=== PATIENT | female | born 1995 | race African-American/Black ===

== ENCOUNTER 2020-12-06 20:56 | Emergency (ER) | payer BC, MEDICAID, SELFPAY ==
[2020-12-06 21:05] VITALS: BP 147/96; PULSE 98; RESP 18; TEMP 36.7; O2SAT 97; BMI 39.6
--- NOTE | 2020-12-06 22:22 | W.ED.NAVMDI ---
HPI - Nausea/Vomiting/Diarrhea General: Chief complaint: Nausea/Vomiting/Diarrhea Stated complaint: 18 Weeks Preg\Vomiting Time Seen by Provider: 12/06/20 22:22 History of Present Illness: HPI Narrative: 25-year-old female comes in today with complaints of abdominal cramping along with nausea and vomiting. Patient is 18 weeks and has had persistent nausea and vomiting over the last 8 weeks. Patient reports some weight loss. Patient appears well. Patient appears no acute distress at this time. Respirations are even. Patient denies any vaginal discharge or bleeding. MD elicited complaint: nausea and vomiting Associated nausea: Yes Associated symtoms: Reports nausea Review of Systems General: Reports: 10 or more systems reviewed and unremarkable except in HPI and below GI: Reports: nausea and vomiting Physical Exam Const: COMMON NORMALS: no acute distress and patient oriented x3 GENERAL APPEARANCE: cooperative HENMT: COMMON NORMALS: normocephalic, TM's normal bilaterally and Normal external nose present HEAD & SCALP: normal to inspection and normocephalic NOSE: Normal external nose present TYMPANIC MEMBRANE: TM's normal bilaterally MOUTH: Normal oral and palatal mucosa present THROAT: posterior oropharynx normal Eye: GENERAL EYE: appearance normal, both eyes and all related structures Neck/C-Spine: COMMON NORMALS: full ROM Lymph: LYMPHATIC: no lymphadenopathy noted Chest: COMMONS NORMALS: normal inspection of the chest Resp: COMMON NORMALS: normal respiratory effort EFFORT & INSPECTION: Yes able to speak in complete sentences Cardio: COMMON NORMALS: regular rate and regular rhythm RATE: regular rate RHYTHM: regular rhythm GI: COMMON NORMALS: non-tender : COMMON NORMALS: Yes no CVA tenderness BLADDER/KIDNEY EXAM: Yes no CVA tenderness Back/Pelvis: COMMON NORMALS: no CVA tenderness and thoracic and lumbar spine normal to inspection Extremity: COMMON NORMALS: normal to inspection Neuro: COMMON NORMALS: patient oriented x3 and moves all extremities Psych: COMMON NORMALS: mental status grossly normal and cooperative Skin: COMMON NORMALS: no rashes or lesions noted GENERAL SKIN EXAM: no rashes or lesions noted Course ED course: 00 15, bedside ultrasound was performed and noted positive movement and heart tones. Vital Signs: Vital signs: Vital Signs Temperature 98.1 F 12/06/20 21:05 Pulse Rate 98 12/06/20 21:05 Respiratory Rate 18 12/06/20 21:05 Blood Pressure 147/96 12/06/20 21:05 Pulse Oximetry 97 12/06/20 21:05 MDM - Nausea/Vomiting/Diarrhea MDM Narrative: Medical decision making narrative: Patient comes in for persistent nausea and vomiting. Patient appears well. Patient appears no acute distress. Abdomen soft nontender. Skin is warm and dry. Vital signs are normal. Differential diagnosis includes gastroenteritis, hyperemesis gravidarum, UTI. Urinalysis was clear, laboratory values were unremarkable. Reviewed exam with patient with recommendations for treatment and follow-up. Patient reported understanding agreed to plan. Lab Data: Labs: Lab Results 12/06/20 12/06/20 12/06/20 Range/Units 22:30 22:40 22:40 WBC 8.9 (4.0-10.0) 10^3/ uL RBC 3.99 L (4.1-5.3) 10^6/u L Hgb 12.5 (11.5-15.3) g/dL Hct 36.9 L (37.0-47.0) % MCV 92.5 (81-99) fL MCH 31.3 (28.0-34.0) pg MCHC 33.9 (30.0-36.0) g/dL RDW 13.5 (12.1-15.1) % Plt Count 318 (130-400) 10^3/c mm MPV 10.5 H (7.4-10.4) fL Neut % (Auto) 66.9 % Lymph % (Auto) 26.2 % [place] % (Auto) 5.5 % Eos % (Auto) 0.8 % Baso % (Auto) 0.3 % Neut # (Auto) 5.98 (1.8-7.7) 10^3/u L Lymph # (Auto) 2.3 (0.8-4.8) 10^3/u L [place] # (Auto) 0.5 (0.2-0.9) 10^3/u L Eos # (Auto) 0.1 (0.0-0.8) 10^3/u L Baso # (Auto) 0.0 (0.0-0.1) 10^3/u L Nucleated RBC % (a uto) 0 % Nucleated RBCs # 0.0 /100WBC Sodium 136 (136-145) mmol/L Potassium 3.5 (3.5-5.1) mmol/L Chloride 103 (98-107) mmol/L Carbon Dioxide 23 (22-29) mmol/L Anion Gap 13.5 (5-19) BUN 5 L (6-20) mg/dL Creatinine 0.4 L (0.5-0.9) mg/dL GFR Calculation 233.5 H (90-130) mL/min Glucose 85 (65-115) mg/dL Calculated Osmolal ity 279 L (285-295) mOsm/k g Calcium 8.5 (8.5-10.5) mg/dL Total Bilirubin 0.2 (0.15-1.2) mg/dL AST 14 (0-32) U/L ALT 20 (0-33) U/L Alkaline Phosphata se 55 (35-105) IU/L Total Protein 6.2 L (6.6-8.7) g/dL Albumin 3.6 (3.5-5.2) g/dL Globulin 2.6 (1.3-4.6) g/dL Lipase 16 (13-60) U/L Urine Color Yellow (Yellow) Urine Appearance Clear (CLEAR) Urine pH 5 (5-7) Ur Specific Gravit y 1.025 (1.005-1.030) Urine Protein Neg (Negative) Urine Glucose (UA) Norm (Normal) Urine Ketones 1+ H (Negative) Urine Blood Neg (Negative) Urine Nitrate Negative (Negative) Urine Bilirubin 1+ H (Negative) Urine Urobilinogen 1 H (Negative) mg/dL Ur Leukocyte Lisa ase Trace H (Negative) Urine RBC 0-4 H (0-2) /hpf Urine WBC 0-4 H (0-5) /hpf Ur Squamous Epith Cells 0-4 H (0-5) /hpf Amorphous Sediment Not Reportable Urine Bacteria Trace (NONE) /hpf Urine Mucus 1+ /hpf Discharge Plan Discharge Condition: Stable Referrals: Jessica Marin, MOTOR ASSEMBLY SUPERVISOR-C [Primary Care Provider] - Coding Level of Care Code ED Area Director Of Home Health Sales for g Fwd Exam Comprehensive
[2020-12-06] MEDS: sodium chloride 0.9% 1,000 ML 999 ML IV (23:00)
[2020-12-06] MEDS: ondansetron 2 mg/ML SDV 2 mL 4 MG IVP (23:05)
[2020-12-06 23:07] LABS: Basophils % 0.3 %; Eosinophils # 0.1 10^3/uL (0.0-0.8); Eosinophils % 0.8 %; Hematocrit 36.9 % (37.0-47.0); Hemoglobin 12.5 g/dL (11.5-15.3); Lymphocytes # 2.3 10^3/uL (0.8-4.8); Lymphocytes % 26.2 %; Mean Corpuscular HGB Conc 33.9 g/dL (30.0-36.0); Mean Corpuscular Hemoglobin 31.3 pg (28.0-34.0); Mean Corpuscular Volume 92.5 fL (81-99); Mean Platelet Volume 10.5 fL (7.4-10.4); Monocytes # 0.5 10^3/uL (0.2-0.9); Monocytes % 5.5 %; Neutrophils # 5.98 10^3/uL (1.8-7.7); Neutrophils % 66.9 %; Nucleated Red Blood Cells % 0 %; Platelet Count 318 10^3/cmm (130-400); Red Blood Count 3.99 10^6/uL (4.1-5.3); Red Cell Distribution Width 13.5 % (12.1-15.1); White Blood Count 8.9 10^3/uL (4.0-10.0)
[2020-12-06 23:24] LABS: Alanine Aminotransferase 20 U/L (0-33); Albumin Level 3.6 g/dL (3.5-5.2); Alkaline Phosphatase 55 IU/L (35-105); Anion Gap 13.5 (5-19); Aspartate Amino Transferase 14 U/L (0-32); Blood Urea Nitrogen 5 mg/dL (6-20); Calcium 8.5 mg/dL (8.5-10.5); Carbon Dioxide 23 mmol/L (22-29); Chloride 103 mmol/L (98-107); Globulin 2.6 g/dL (1.3-4.6); Glomerular Filtration Rate 233.5 mL/min (90-130); Glucose 85 mg/dL (65-115); Lipase 16 U/L (13-60); Osmolality Calculated 279 mOsm/kg (285-295); Potassium 3.5 mmol/L (3.5-5.1); Sodium 136 mmol/L (136-145); Total Bilirubin 0.2 mg/dL (0.15-1.2); Total Protein 6.2 g/dL (6.6-8.7)
[2020-12-06 23:25] LABS: Bilirubin Urine 1+ (Negative); Blood Urine Neg (Negative); Glucose Urine UA Norm (Normal); Ketones Urine 1+ (Negative); Nitrate Urine Negative (Negative); Protein Urine Neg (Negative); Specific Gravity, Urine 1.025 (1.005-1.030); Urine Appearance Clear (CLEAR); Urine Color Yellow (Yellow); Urobilinogen Urine 1 mg/dL (Negative); pH Urine 5 (5-7)
[2020-12-06 23:26] LABS: Add Urine Culture? No; Add Urine Microscopic? YES; Bacteria Urine TRACE /hpf; Leukocyte Esterase Urine Trace (Negative); Mucus Urine 1+ /hpf; RBC Urine 0-4 /hpf (0-2); Squamous Epithelial Cell Urine 0-4 /hpf (0-5); WBC Urine 0-4 /hpf (0-5)
[2020-12-07 00:55] VITALS: BP 134/92; PULSE 84; O2SAT 97
== END 2020-12-07 00:45 | disposition home or self-care (01) ==
PROVIDERS: Emergency Provider Nurse Practitioner Family; PCP Nurse Practitioner
DX: O26.892 Other specified pregnancy related conditions, second trimester (principal); R10.9 Unspecified abdominal pain; R11.2 Nausea with vomiting, unspecified; Z3A.18 18 weeks gestation of pregnancy
CPT/HCPCS: 80053; 81001; 83690; 85025; 96361; 96374; 99283; J2405; J7030

== ENCOUNTER 2021-02-17 22:21 | Outpatient (CLI) | payer BC, MEDICAID, SELFPAY ==
[2021-02-17] VITALS (11 sets, daily range): BP systolic 122–131; BP diastolic 65–78; PULSE 77–95; O2SAT 98–100; BMI 40.6
== END 2021-02-17 23:55 | disposition home or self-care (01) ==
LOC: OPOB 22:21 → OBGYN 22:22
PROVIDERS: PCP Nurse Practitioner; Visit Provider Family Medicine
DX: O26.899 Other specified pregnancy related conditions, unspecified trimester (principal); Z3A.00 Weeks of gestation of pregnancy not specified; R10.9 Unspecified abdominal pain
CPT/HCPCS: 59025; 99211

== ENCOUNTER 2021-03-27 09:48 | Outpatient (CLI) | payer BC, MEDICAID, SELFPAY ==
[2021-03-27 10:09] VITALS: TEMP 35.9
[2021-03-27 10:10] VITALS: BP 133/65; PULSE 90
[2021-03-27 10:21] VITALS: RESP 18
[2021-03-27 10:22] VITALS: BMI 41.0
[2021-03-27 10:42] VITALS: BP 133/69; PULSE 84
[2021-03-27 10:55] LABS: Urine Appearance Cloudy (CLEAR); Urine Color Yellow (Yellow); pH Urine 6.5 (5-7)
[2021-03-27 10:56] LABS: Bilirubin Urine Neg (Negative); Blood Urine Neg (Negative); Glucose Urine UA Norm (Normal); Ketones Urine Negative (Negative); Leukocyte Esterase Urine 2+ (Negative); Nitrate Urine Negative (Negative); Protein Urine Neg (Negative); Specific Gravity, Urine 1.015 (1.005-1.030); Urobilinogen Urine 1 mg/dL (Negative)
[2021-03-27 11:12] VITALS: BP 131/72; PULSE 81
[2021-03-27 11:17] LABS: RBC Urine 0-4 /hpf (0-2); Squamous Epithelial Cell Urine 25-40 /hpf (0-5); WBC Urine 15-25 /hpf (0-5)
[2021-03-27 11:18] LABS: Add Urine Culture? No; Bacteria Urine 1+ /hpf; Mucus Urine 2+ /hpf
[2021-03-27 11:45] VITALS: BP 131/72; PULSE 81
== END 2021-03-27 11:45 | disposition home or self-care (01) ==
LOC: OPOB 10:00 → OBGYN 10:03
PROVIDERS: PCP Nurse Practitioner; Visit Provider Family Medicine
DX: O47.9 False labor, unspecified (principal)
CPT/HCPCS: 59025; 81001; 99211

== ENCOUNTER 2021-04-27 20:43 | Outpatient (CLI) | payer BC, MEDICAID, SELFPAY ==
[2021-04-27] VITALS (9 sets, daily range): BP systolic 122–137; BP diastolic 63–78; PULSE 75–85; RESP 15; TEMP 36.1; O2SAT 99; BMI 39.6
[2021-04-27] MEDS: HYDROcodone-acetaminophen 5-325 mg Tablet 1 TAB PO (21:55)
--- NOTE | 2021-04-27 23:29 | PC.NURSE ---
Patient on unit alone but reports that she has a friend that drove her to the hospital to drive her home.
== END 2021-04-27 22:35 | disposition home or self-care (01) ==
LOC: OPOB 20:44 → OBGYN 20:45
PROVIDERS: Visit Provider Family Medicine
DX: O99.891 Other specified diseases and conditions complicating pregnancy (principal); H53.8 Other visual disturbances; R42 Dizziness and giddiness; R11.2 Nausea with vomiting, unspecified; O47.9 False labor, unspecified; Z3A.00 Weeks of gestation of pregnancy not specified
CPT/HCPCS: 59025; 99211

== ENCOUNTER 2021-04-28 10:30 | Outpatient (CLI) | payer BC, MEDICAID, SELFPAY ==
[2021-04-28] VITALS (13 sets, daily range): BP systolic 119–166; BP diastolic 68–94; PULSE 74–96; RESP 20; TEMP 36.8; BMI 39.9
[2021-04-28] MEDS: lactated ringers 1,000 ML 999 ML IV (11:44)
[2021-04-28 11:49] LABS: Basophils % 0.5 %; Eosinophils % 0.3 %; Hematocrit 33.7 % (37.0-47.0); Hemoglobin 11.5 g/dL (11.5-15.3); Lymphocytes # 1.3 10^3/uL (0.8-4.8); Mean Corpuscular HGB Conc 34.1 g/dL (30.0-36.0); Mean Corpuscular Hemoglobin 32.3 pg (28.0-34.0); Mean Corpuscular Volume 94.7 fl (81-99); Mean Platelet Volume 11.2 fL (7.4-10.4); Monocytes # 0.4 10^3/uL (0.2-0.9); Monocytes % 6.8 %; Neutrophils # 4.25 10^3/uL (1.8-7.7); Neutrophils % 71.1 %; Nucleated Red Blood Cells % 0 %; Platelet Count 320 10^3/cmm (130-400); Red Blood Count 3.56 10^6/uL (4.1-5.3); Red Cell Distribution Width 13.2 % (12.1-15.1)
[2021-04-28 12:12] LABS: Add Urine Microscopic? YES; Bilirubin Urine Neg (Negative); Blood Urine Neg (Negative); Glucose Urine UA Norm (Normal); Ketones Urine Negative (Negative); Leukocyte Esterase Urine Trace (Negative); Nitrate Urine Negative (Negative); Protein Urine Neg (Negative); Urine Appearance Clear (CLEAR); Urine Color Yellow (Yellow); Urobilinogen Urine 1 mg/dL (Negative); pH Urine 7 (5-7)
[2021-04-28 12:21] LABS: Urine Creatinine 90 mg/dL (28-217)
[2021-04-28 12:22] LABS: UPRO/UCREAT Ratio 0.26 mg/mg CR; Urine Protein Random 23 mg/dL
[2021-04-28 12:23] LABS: Alanine Aminotransferase 6 U/L (0-33); Albumin Level 3.3 g/dL (3.5-5.2); Alkaline Phosphatase 100 IU/L (35-105); Aspartate Amino Transferase 9 U/L (0-32); Blood Urea Nitrogen 5 mg/dL (6-20); Carbon Dioxide 19 mmol/L (22-29); Chloride 105 mmol/L (98-107); Globulin 2.2 g/dL (1.3-4.6); Glomerular Filtration Rate 325.4 mL/min (90-130); Glucose 84 mg/dL (65-115); Osmolality Calculated 276 mOsm/kg (285-295); Sodium 135 mmol/L (136-145); Total Bilirubin 0.2 mg/dL (0.15-1.2); Total Protein 5.5 g/dL (6.6-8.7); Uric Acid 2.2 mg/dL (2.4-5.7)
[2021-04-28 12:25] LABS: Anion Gap 15.3 (5-19); Potassium 4.3 mmol/L (3.5-5.1)
[2021-04-28 12:33] LABS: Add Urine Culture? No; Bacteria Urine TRACE /hpf; Mucus Urine 1+ /hpf; WBC Urine RARE /hpf (0-5)
== END 2021-04-28 13:13 | disposition home or self-care (01) ==
LOC: OPOB 10:39 → OBGYN 10:40
PROVIDERS: Family Medicine; Visit Provider Family Medicine
DX: O99.891 Other specified diseases and conditions complicating pregnancy (principal); R42 Dizziness and giddiness; R51.9 Headache, unspecified; H53.8 Other visual disturbances
CPT/HCPCS: 36415; 59025; 80053; 81001; 82570; 84156; 84550; 85025; 96360; 99211

== ENCOUNTER 2021-05-03 05:13 | Inpatient (IN) | payer BC, MEDICAID, SELFPAY ==
--- NOTE | 2021-04-26 06:36 | SUR.PREOP ---
04/25/21 12:00: patient arrived for her epidural consult as scheduled. Nurse and patient discussed process for scheduled procedure. Patient had no questions. Patient was given soap and hibiclens and instructed how to use.
[2021-05-03] VITALS (26 sets, daily range): BP systolic 112–141; BP diastolic 50–87; PULSE 61–88; RESP 14–18; TEMP 36.3–36.6; O2SAT 97–100; BMI 39.9
[2021-05-03] MEDS: lactated ringers 1,000 ML 999 ML IV ×2 (05:44→07:01)
--- NOTE | 2021-05-03 06:29 | P.HP_ITS ---
Providers/Chief Complaint Admitting Physician: Matthias Yuan MD Chief Complaint: IUP LAURA 05/10/2021 HPI CONSULTING SOLUTION DIRECTOR History of Present Illness Samreen Xavier is a 25 year old female at 39 weeks estimated gestational age who presents for a repeat . Her has been relatively unremarkable. She tested positive for trichomonas and was treated. She did arrive at the OB department several days ago where she was noted to have high blood pressure, but that resolved spontaneously. She was seen in my office the potential risks associated with a repeat section. And, we set the appointment for the . Present Details : 3 Para: 2 Labs Rubella: Non-Immune RPR: Negative GBS: Negative Review of Systems General: Reports: 10 or more systems reviewed and unremarkable except in HPI and below Const: Reports: fatigue; Denies: fever(s) Eyes: Denies: change in vision Card: Denies: chest pain Musc: Reports: back pain [place]/Lymph: Denies: easy bruising Medications/Allergies Home Medications Medication Instructions Recorded Confirmed Last Taken Type hydrocodone-acetaminophen 1 tab PO Q6H PRN #28 tab 05/04/21 Unknown Rx multivit no.[id number]-[id number] acid 1 cap PO BREAKFAST #90 cap 05/04/21 Unknown Rx [-U] Allergies Allergy/AdvReac Type Severity Reaction Status Date / Time lemon Allergy Severe ALGY-Swell Verified 05/03/21 11:43 Lip/Tongue/Throat ibuprofen [From Motrin] Allergy ADR-Gastrointestinal Verified 05/03/21 11:44 Upset oxycodone [From Percocet] Allergy ALGY-Rash Verified 05/03/21 11:44 Vitals/I&O/Wt Last Vital Signs Pulse 88 05/03/21 05:29 Resp 18 05/03/21 05:17 BP 132/84 05/03/21 05:29 Weight last 48 hrs Weight 286 lb Physical Exam Const: COMMON NORMALS: patient oriented x3 and alert HENMT: COMMON NORMALS: moist oral mucous membranes HEAD & SCALP: normal to inspection Chest: COMMONS NORMALS: normal inspection of the chest Resp: COMMON NORMALS: clear to auscultation bilaterally AUSCULTATION: clear to auscultation bilaterally Cardio: COMMON NORMALS: regular rate and regular rhythm RATE: regular rate RHYTHM: regular rhythm GI: INSPECTION: Yes normal to inspection and Yes other (Gravid) Extremity: COMMON NORMALS: normal to inspection GENERAL: Yes edema (Trace) Neuro: COMMON NORMALS: patient oriented x3, moves all extremities and no sensory deficits noted SENSORIUM/ORIENTATION: Yes alert Psych: COMMON NORMALS: mental status grossly normal Skin: COMMON NORMALS: no rashes or lesions noted GENERAL SKIN EXAM: no rashes or lesions noted Data : 05/03/21 22:20 A&P Assessment and plan (1) History of : We once again discussed the risks of a repeat section including the risks of bleeding, infection, and damage to intra-abdominal organs. The patient had no further questions and wishes to proceed. Status: Resolved (2) 39 weeks gestation of : Status: Resolved Attestations Medical Necessity Statement*: I anticipate routine and post C- section care. Coding Level of Care Code Acute Director Employee Safety And Health for [facility] Fwd Exam Comprehensive Diagnoses History of Z98.891 39 weeks gestation of Z3A.39
[2021-05-03 06:34] LABS: Basophils % 0.4 %; Eosinophils % 0.4 %; Hematocrit 33.8 % (37.0-47.0); Hemoglobin 11.4 g/dL (11.5-15.3); Lymphocytes # 1.8 10^3/uL (0.8-4.8); Lymphocytes % 24.6 %; Mean Corpuscular HGB Conc 33.7 g/dL (30.0-36.0); Mean Corpuscular Hemoglobin 31.8 pg (28.0-34.0); Mean Corpuscular Volume 94.2 fl (81-99); Mean Platelet Volume 10.8 fL (7.4-10.4); Monocytes # 0.5 10^3/uL (0.2-0.9); Monocytes % 6.8 %; Neutrophils # 4.83 10^3/uL (1.8-7.7); Neutrophils % 67.5 %; Nucleated Red Blood Cells % 0 %; Platelet Count 346 10^3/cmm (130-400); Red Blood Count 3.59 10^6/uL (4.1-5.3); Red Cell Distribution Width 13.2 % (12.1-15.1); White Blood Count 7.2 10^3/uL (4.0-10.0)
[2021-05-03] MEDS: citric acid-sodium citrate 30 mL UDC PO (06:54)
[2021-05-03] MEDS: metoclopramide 5 mg/mL SDV 2 mL 10 MG IVP (06:54)
[2021-05-03] MEDS: famotidine 20 mg/2 mL INJ IVP (06:55)
--- NOTE | 2021-05-03 06:57 | P.ANESASSM_ITS ---
Pre-Anesthetic Assessment Pre-Anesthetic Assessment: Height/Weight: Height 1.8 m Weight 129.727 kg Pulse Resp BP 88 18 132/84 05/03/21 05:29 05/03/21 05:17 05/03/21 05:29 Preop Diagnosis: previous c section Proposed Procedure: Operation Date: 05/03/21 07:00 Proposed Procedures p Section Repeat(Not Applicable) - Matthias Yuan MD Familial anesthetic complications: none Was Beta Silas taken within 24 hours: N/A Was Clonidine taken within 24 hours: N/A Last intake: Intake Last Liquid Date 05/02/21 Last Liquid Time 23:00 Last Solid Date 05/02/21 Last Solid Time 19:00 Social: Social History: Tobacco and No alcohol Packs per day: 6 cigs Exam: Pre-Anes Outpt Exam: alert, oriented x 3, clear to auscultation bilaterally and regular rate & rhythm Airway: Submandibular: WNL Cervical ROM: WNL MP: 1 Dentition: Full Pulmonary: Pulmonary: Asthma CV/HEM: Comments: says heart rate changes when she stands up (POTS?) : : None reported Hepatic: Hepatic: None reported GI: GI: GERD Metabolic: Metabolic: Morbid obesity Musc/skel: Musc/skel: Scoliosis Neuropsych: Neuropsych: Anxiety, Depression and ISSA Anesthetic Plan: ASA status: 3 Anesthesia: Regional (specify below) Risk of > 500 ml blood loss (7ml/kg in children): No PFSH Anesthesia Female Reproductive History: : 3 Data Anesthesia CBC & Chem 7: 05/03/21 05:39 Other Labs: Laboratory Results - last 48 hr 05/03/21 05:39 WBC 7.2 RBC 3.59 L Hgb 11.4 L Hct 33.8 L MCV 94.2 MCH 31.8 MCHC 33.7 RDW 13.2 Plt Count 346 MPV 10.8 H Neut % (Auto) 67.5 Lymph % (Auto) 24.6 [place] % (Auto) 6.8 Eos % (Auto) 0.4 Baso % (Auto) 0.4 Neut # (Auto) 4.83 Lymph # (Auto) 1.8 [place] # (Auto) 0.5 Eos # (Auto) 0.0 Baso # (Auto) 0.0 Nucleated RBC % (auto) 0 Nucleated RBCs # 0.0 Cardiac Studies: No Data to Display
--- NOTE | 2021-05-03 08:12 | PC.NURSE ---
IN OR AT THIS TIME.
--- NOTE | 2021-05-03 08:34 | PM.OP ---
Operative Report Date of procedure: May 03, 2021 Pre-op Diagnosis: previous c section Post-op diagnosis: same Procedure Done: Lower transverse section. Specimens removed/disposition: 1. Female infant with Apgars of 9 and 9 and a weight of 6 pounds 15 ounces 2. Placenta with a three-vessel cord delivered intact Surgeon: Matthias Yuan Biodiesel Plant Manager: David Ward Anesthesia: Other (Spinal) Estimated blood loss (mL): 800 Complications: None Condition: stable Disposition: floor (OB) Brief History: Refer to history and physical Procedure: The patient was brought back to the operating room where she was prepped and draped in usual sterile fashion. Anesthesia was found to be adequate. A lower transverse skin incision was then made with a #10 blade. I then dissected down to the underlying subcutaneous tissue until arriving at the prerectal fascia. The fascia was then nicked with the scalpel bilaterally. The fascial incisions were then carried laterally with Morse scissors. Attention was then turned to the superior aspect of the incision which was grasped with kochers and tented up away from the underlying rectus abdominis muscles. The muscles were then dissected away from the fascia manually, and later with Morse scissors. Attention was then turned to the inferior aspect of the incision, and the fascia was dissected away from the underlying muscle in similar fashion. The rectus abdominis muscles were then spread manually. The peritoneum was entered manually. Excellent visualization of the uterus was noted. A lower transverse uterine incision was then made with a #10 blade. Upon arriving at the intrauterine cavity, the uterine incision was then extended manually. The was noted to be in vertex position. The baby was delivered without difficulty. After delivery of the head, the mouth and nose were suctioned at the site of the incision. There was no meconium. There was no nuchal cord. The remainder of the body was then delivered and placed on the abdomen. The cord was cut and clamped. The baby was then handed to the waiting nurse. The placenta was removed intact. The uterus was externalized. The intrauterine cavity was cleansed of any remaining debris. The uterine incision was reapproximated in 2 layers. The first layer was performed with 0 Vicryl in a running locked stitch. The second layer was an imbricating stitch also using 0 Vicryl. The uterus was replaced into the abdomen. The peritoneum was then irrigated with warm saline. I reexamined the uterine incision and found it to be hemostatic. Irrigation was performed. The rectus abdominis muscles were then reapproximated using 0 Vicryl in a running stitch. The fascia was then reapproximated using 0 Vicryl in running stitch. The subcutaneous tissue was reapproximated using 0 Vicryl in a running stitch. The skin was reapproximated using 4-0 Vicryl on a Santos needle. A sterile dressing was placed. All counts were correct x2. Both the mother and baby were in stable condition. Associated Problem List Diagnoses (1) 39 weeks gestation of : (2) History of :
--- NOTE | 2021-05-03 08:45 | ANE.PACU2 ---
Inpatient post-anesthesia follow up: Airway intact: Yes Vital signs: Temperature Pulse Rate 88 Respiratory Rate 18 Blood Pressure 132/84 Pulse Oximetry Oxygen Delivery Me thod Room Air Oxygen Flow Rate Fraction of Inspir ed Oxygen Hydration adequate: Yes Nausea and vomiting: No Pain level: 1 Mental status: Baseline
[2021-05-03] MEDS: dextrose 5%-lactated ringers 1,000 ML 125 ML IV ×2 (10:04→19:07)
[2021-05-03] MEDS: ketorolac 30 mg/mL INJ IVP ×3 (10:11→22:33)
[2021-05-03] MEDS: docusate sodium 100 mg Capsule PO (10:11)
[2021-05-03] MEDS: ondansetron 2 mg/ML SDV 2 mL 4 MG IVP (12:23)
--- NOTE | 2021-05-03 12:25 | PC.NURSE ---
Entered pt room pt sitting up in bed vomiting. Pt vomited 800mL of clear green vomit. Pt given 4 mg Zofran IV push
--- NOTE | 2021-05-03 15:05 | PC.NURSE ---
Call to Dr. Yuan to report pt urine is negative for trichamonas, however, pt is positive for chlamydia. Received orders for 1 gram Azithromyacin PO once.
[2021-05-03] MEDS: azithromycin 250 mg Tablet 1000 MG PO (15:46)
[2021-05-03] MEDS: sodium chloride 0.9% 500 ML 999 ML IV (17:22)
[2021-05-03] MEDS: HYDROcodone-acetaminophen 5-325 mg Tablet PO (18:01)
[2021-05-03] MEDS: lanolin oint 7 gm 1 APPLIC TOPICAL (21:28)
[2021-05-03 22:28] LABS: Hematocrit 29.5 % (37.0-47.0); Hemoglobin 10.1 g/dL (11.5-15.3); Mean Corpuscular HGB Conc 34.2 g/dL (30.0-36.0); Mean Corpuscular Hemoglobin 32.4 pg (28.0-34.0); Mean Corpuscular Volume 94.6 fl (81-99); Mean Platelet Volume 10.3 fL (7.4-10.4); Platelet Count 263 10^3/cmm (130-400); Red Blood Count 3.12 10^6/uL (4.1-5.3); Red Cell Distribution Width 13.3 % (12.1-15.1); White Blood Count 7.9 10^3/uL (4.0-10.0)
[2021-05-04] MEDS: HYDROcodone-acetaminophen 5-325 mg Tablet PO ×2 (04:07→10:28)
[2021-05-04 04:35] VITALS: BP 101/57; PULSE 83
--- NOTE | 2021-05-04 07:00 | P.DS_ITS ---
Discharge Providers EYEGLASS FRAME TRUER Date of Admission: 05/03/21 05:13 Date of Discharge: 05/04/21 Attending Provider at Admission: Matthias Yuan MD Attending Provider at Discharge: Matthias Yuan MD Diagnoses at Discharge Discharge Diagnosis (1) 39 weeks gestation of : Status: Acute (2) History of : Status: Acute Reason for Visit Reason for Visit: IUP LAURA 05/10/2021 Hospital Course Hospital Course The patient has done very well. Her pain has been well controlled. Her urine output is been appropriate. She has breast-fed well. Her bleeding has been within normal limits. There have been no concerns. Information Peripartum Data: Infant Delivery Method: Physical Exam Narrative: EXAM NARRATIVE: She is in no acute distress Lungs are clear auscultation bilaterally Her heart has a regular rate and rhythm Her fundus is below the umbilicus and firm Her dressing is clean, dry and intact Her extremities have trace edema Urinary Catheter Management^: [place]: Cath Placed During This Visit: yes, but has since been removed by the nurse Reason for Continuing Indwelling Catheter: Decision to DC Catheter Urinary Catheter Date of Insertion: 05/03/21 Urinary Catheter Time of Insertion: 07:20 Date Urinary Catheter Removed: 05/04/21 Time Urinary Catheter Discontinued: 02:15 Discharge Data Data Completed and Pending: Labs from last 24 hours 05/03/21 05/03/21 22:20 05:39 WBC 7.9 RBC 3.12 L Hgb 10.1 L Hct 29.5 L MCV 94.6 MCH 32.4 MCHC 34.2 RDW 13.3 Plt Count 263 MPV 10.3 Blood Type O Positive Rho(D) Type Positive Antibody Screen Negative Vitals: Last Vital Signs Temp 97.9 F 05/03/21 17:15 Pulse 83 05/04/21 04:35 Resp 14 05/03/21 23:15 BP 101/57 05/04/21 04:35 Pulse Ox 98 05/03/21 23:15 Discharge Plan Discharge Patient Disposition: Home Condition: Stable Prescriptions: New hydrocodone-acetaminophen 5-325 mg Tablet 1 tab PO Q6H PRN (Reason: Moderate To Severe Pain) Qty: 28 RF: 0 -U 106.5-1 mg Capsule 1 cap PO BREAKFAST Qty: 90 RF: 0 Discontinued omeprazole 20 mg Capsule,Delayed Release(Dr/Ec) 40 mg PO BID RF: 0 Discharge Orders: Discharge Order (Routine); Ordered 05/04/21 Ordered By: Matthias Yuan Referrals: David Ward MD [Physician] - 6 Weeks Matthias Yuan MD [Physician] - 4-7 days Discharge Diet: Usual diet Discharge Activity: Limit activity as instructed Patient Instructions: Opioid Safety Discharge Attestations EYEGLASS FRAME TRUER Time Spent in Discharge Care*: less than 30 min Coding Level of Care Code Acute Tile Edger for Chg Fwd Diagnoses 39 weeks gestation of Z3A.39 History of Z98.891
[2021-05-04] MEDS: prenatal vitamin Capsule 1 CAP PO (10:28)
[2021-05-04] MEDS: docusate sodium 100 mg Capsule PO (10:28)
[2021-05-04] MEDS: measles,mumps,rubella pf Vial (w/diluent) 0.5 ML SUBCUT (14:52)
[2021-05-04 15:00] VITALS: BP 122/82; PULSE 81; RESP 16; TEMP 37.1; O2SAT 98
== END 2021-05-04 15:15 | disposition home or self-care (01) | DRG 788 ==
PROVIDERS: Admitting Provider Family Medicine; Visit Provider Family Medicine
PROC: 10D00Z1 Extraction of Products of Conception, Low, Open Approach (ICD-10-PCS; CPT 59514; principal; 2021-05-03 07:00)
DX: O34.219 Maternal care for unspecified type scar from previous cesarean delivery (principal); O99.334 Smoking (tobacco) complicating childbirth; F17.210 Nicotine dependence, cigarettes, uncomplicated; O99.62 Diseases of the digestive system complicating childbirth; K21.9 Gastro-esophageal reflux disease without esophagitis; Z3A.39 39 weeks gestation of pregnancy; Z37.0 Single live birth; Z23 Encounter for immunization; Z86.19 Personal history of other infectious and parasitic diseases
CPT/HCPCS: 12345; 36415; 51702; 59025; 59409; 85025; 85027; 86850; 86900; 87661; 90707; 96372; 96374; 96376; 98960; 99211; J0690; J1885; J2274; J2370; J2405; J2765; J3490; J7040; Q0144

== ENCOUNTER 2025-01-17 15:07 | Emergency (ER) | payer BC, MEDICAID, SELFPAY ==
--- OUTSIDE RECORDS SUMMARY | 2025-01-17 15:11 | XMS_ITS | Clinical Summary ---
Author Organization [facility] Address [address] [place] [address] Phone Care Team Providers Care English Horn Player Name Role Phone Non-Staff, Physician Primary Care Provider Unava ilable Allergies Active Allergy Reactions Criticality Noted Date Comments Hydrocodone Other (See Comments) 01/13/2020 Hives Ibuprofen Other (See Comments) 01/13/2020 Gi bleed Medications omeprazole (PriLOSEC) 20 mg Capsule, Delayed Release(E.C.) Take 20 mg by mouth daily. Active ondansetron (ZOFRAN ODT) 4 mg Tablet, Rapid Dissolve Take 4 mg by mouth every 8 hours as needed. Active PARoxetine HCl (PAXIL) 10 mg tablet Take 10 mg by mouth daily. Active Active Problems No known active problems Social History Tobacco Use Types Packs/Day Years Used Date Smoking Tobacco: Every Day Cigarettes Alcohol Use Standard Drinks/Week Comments No 0 (1 standard drink = 0.6 oz pur e alcohol) Comments Unknown Sex and Gender Information Value Date Recorded Sex Assigned at Not on file Legal Sex Female 9:46 AM CDT Gender Identity Not on file Sexual Orientation Not on file Last Filed Vital Signs Vital Sign Reading Time Taken Comments Blood Pressure 119/55 12/01/2016 5:26 AM CDT Pulse 77 12/01/2016 5:26 AM CDT Temperature 36.7 C (98.1 F) 12/01/2016 1:40 AM CDT Respiratory Rate 20 12/01/2016 5:26 AM CDT Oxygen Saturation - - Inhaled Oxygen Concentration - - Weight 125.2 kg (276 lb) 02/10/2020 10:27 AM CDT Height 180.3 cm (5' 11 ) 02/10/2020 10:27 AM CDT Body Mass Index 38.49 02/10/2020 10:27 AM CDT Plan of Treatment Health Maintenance Due Date Last Done Comments HPV VACCINES (1 - 3-dose series) 2009 DTAP/TDAP/TD VACCINES (1 - Tdap) 2013 HEPATITIS B VACCINES (1 of 3 - 19+ 3-dose series) 09/24 HPV/Cotest (21-29) 10/06/2015 CERVICAL CANCER SCREENING 2024 HPV/Cotest (30-65) 2024 PAP SMEAR 2024 INFLUENZA VACCINE (#1) 2024 Care Teams English Horn Player Relationship Specialty Start Date End Date Non-Staff, Physician NO ADDRESS ON FILE PCP - General 12/01/16
--- OUTSIDE RECORDS SUMMARY | 2025-01-17 15:11 | XMS_ITS | Clinical Summary ---
Author Organization [facility] Address [address] [place] [address] Phone Care Team Providers Care Millinery Teacher Name Role Phone Non-Staff, Physician Primary Care Provider Unava ilable Allergies Active Allergy Reactions Criticality Noted Date Comments Ibuprofen Unknown 12/01/2016 Bleed in stool Oxycodone Hives High 12/01/2016 Medications PARoxetine HCl (PAXIL) 10 mg tablet Take 10 mg by mouth daily. Active ondansetron (ZOFRAN ODT) 4 mg Tablet, Rapid Dissolve Take 4 mg by mouth every 8 hours as needed for Nausea/Emesis Dissolve tablet on top of tongue, then swallow with saliva. . Active omeprazole (PriLOSEC) 20 mg Capsule, Delayed Release(E.C.) Take 20 mg by mouth daily. Active Social History Tobacco Use Types Packs/Day Years Used Date Smoking Tobacco: Every Day Cigarettes 0.5 6 Alcohol Use Standard Drinks/Week Comments No 0 (1 standard drink = 0.6 oz pur e alcohol) Comments No Sex and Gender Information Value Date Recorded Sex Assigned at Not on file Legal Sex Female 12:15 AM CDT Gender Identity Not on file Sexual Orientation Not on file Last Filed Vital Signs Vital Sign Reading Time Taken Comments Blood Pressure 119/55 12/01/2016 5:26 AM CDT Pulse 77 12/01/2016 5:26 AM CDT Temperature 36.7 C (98.1 F) 12/01/2016 1:40 AM CDT Respiratory Rate 20 12/01/2016 5:26 AM CDT Oxygen Saturation 99% 12/01/2016 5:26 AM CDT Inhaled Oxygen Concentration - - Weight 129.8 kg (286 lb 3.2 oz) 017 12:35 AM CDT Height 180.3 cm (5' 11 ) 12/01/2016 12: 35 AM CDT Body Mass Index 39.92 12/01/2016 12:35 AM CDT Plan of Treatment Health Maintenance Due Date Last Done Comments DTAP/TDAP/TD VACCINES (1 - Tdap) 2013 HEPATITIS B VACCINES (1 of 3 - 19+ 3-dose series) 09/24 HPV/Cotest (21-29) 10/06/2015 HPV VACCINES (1 - 3-dose SCDM series) 2021 CERVICAL CANCER SCREENING 2024 HPV/Cotest (30-65) 2024 PAP SMEAR 2024 INFLUENZA VACCINE (#1) 2024 Insurance JOANA Advance Directives For more information, please contact: [phone] * Full Code (Latest Code Status on File) Date Activated Date Inactivated Comments 12/01/2016 12:24 AM 12/01/2016 1:11 AM Care Teams Millinery Teacher Relationship Specialty Start Date End Date Non-Staff, Physician NO ADDRESS ON FILE PCP - General 12/01/16
[2025-01-17 15:35] VITALS: BP 148/80; PULSE 88; RESP 18; TEMP 37.1; O2SAT 100
--- NOTE | 2025-01-17 15:41 | ECG_ITS ---
[facility]25[facility]17 Pat Name: Samreen Xavier Department: Room: Gender: Female Cargo Handler: : [id number] Requested By: Alvaro Mitchell Order Number: [id number] Lauren MD: Roc Cordero M.D. Measurements Intervals [place] Rate: 89 P: 37 ID: [id number] QRS: 49 QRSD: 98 T: 25 QT: 349 QTc: 426 Interpretive Statements SINUS RHYTHM WITH SHORT ID INTERVAL No previous ECG available for comparison Electronically Signed On 01-17-2025 18:58:38 CDT by Roc Cordero M.D. [email or web address]
--- NOTE | 2025-01-17 16:24 | ED_ITS ---
HPI - Weakness 2 General: Chief complaint: Weakness Stated complaint: headache on movement / Sob / extreme fatigue Time Seen by Provider: 01/17/25 15:14 History of Present Illness: Patient presents with complaints of weakness and fatigue that have been ongoing for 'a couple of months.' She reports that her primary care physician recently prescribed iron supplementation (324mg) four days ago due to low iron levels. The patient states her iron level was 25, and her doctor indicated it should not be below 12.5 (likely referring to hemoglobin). She was instructed to come in for blood work if she continued to feel weak and tired. Patient reports experiencing tachycardia, particularly when exerting herself (e.g., climbing stairs), and can feel her heartbeat 'all the way up in my throat.' She also complains of shortness of breath and headaches. Patient mentions having heavy menstrual periods, which may contribute to her anemia. She reports recently being prescribed control, presumably to help manage heavy menstruation. Related Data Home Medications ?Medication ?Instructions ?Recorded ?Confirmed albuterol sulfate 90 mcg/actuation 2 puff inhalation Q 4H PRN 01/17/25 01/17/25 aerosol inhaler Shortness Of Breath ferrous gluconate 324 mg (38 mg 324 mg PO DAILY 01/17/25 iron) tablet omeprazole 40 mg capsule,delayed 40 mg PO QPM 01/17/25 01/17/25 release Allergies Allergy/AdvReac Type Severity Reaction Status Date / Time lemon Allergy Severe ALGY-Swell Verified 01/17/25 15:39 Lip/Tongue/Throat ibuprofen (From Motrin) Allergy ADR-Gastrointestinal Verified 01/17/25 15:39 Upset oxycodone (From Percocet) Allergy ALGY-Rash Verified 01/17/25 15:39 Review of Systems 2 General: Reports: 10 or more systems reviewed and unremarkable except in HPI and below Physical Exam 2 Const: COMMON NORMALS: no acute distress, patient oriented x3, alert and well nourished HENMT: COMMON NORMALS: normocephalic HEAD & SCALP: normocephalic Eye: COMMON NORMALS: Equal, round and reactive pupils present, EOMs intact bilaterally and conjunctivae normal CONJUNCTIVA: Yes conjunctivae normal P UPIL: Yes Equal, round and reactive pupils present Resp: COMMON NORMALS: normal respiratory effort, No retractions, No use of accessory muscles, clear to auscultation bilaterally and percussion normal A USCULTATION: clear to auscultation bilaterally PERCUSSION: percussion normal GI: COMMON NORMALS: Normal to inspection, nondistended, normoactive bowel sounds present, Soft to palpation, non-tender, No hepatosplenomegaly present, no masses and no bruits PALPATION: Yes Soft to palpation and Yes No hepatosplenomegaly present Extremity: COMMON NORMALS: normal to inspection, full ROM, capillary refill normal, no joint enlargement, no clubbing, cyanosis or edema, no calf tenderness and no pedal edema Neuro: COMMON NORMALS: patient oriented x3 SENSORIUM/ORIENTATION: Yes alert Skin: COMMON NORMALS: no rashes or lesions noted, turgor normal and no jaundice GENERAL SKIN EXAM: no rashes or lesions noted and turgor normal Course 2 Vital Signs: Vital signs: Vital Signs Temperature 98.7 F 01/17/25 15:35 Pulse Rate 88 01/17/25 15:35 Respiratory Rate 18 01/17/25 15:35 Blood Pressure 148/80 01/17/25 15:35 Pulse Oximetry 100 01/17/25 15:35 Oxygen Delivery Me thod Room Air 01/17/25 15:35 MDM - Weakness Medical Decision Making 1. Iron Deficiency Anemia: - Clinical presentation consistent with iron deficiency anemia, including fatigue, weakness, tachycardia with exertion, shortness of breath, and headaches. - Likely etiology is menorrhagia based on patient's report of heavy menstrual periods. - Patient recently started on oral iron supplementation (324mg) four days ago. - Will review pending laboratory results to assess current hemoglobin, iron studies, and determine if transfusion criteria are met. - May consider iron infusion rather than oral supplementation depending on severity of anemia and lab results. 2. Menorrhagia: - Contributing to iron deficiency anemia. - Patient reports recently starting control to help manage heavy menstrual bleeding. - Will follow up on effectiveness of hormonal management. 3. Plan: - Review complete blood count and iron studies when available. - Assess need for blood transfusion versus iron infusion based on lab results. - Coordinate care with primary care physician regarding ongoing management. - Patient education provided regarding symptoms of anemia and importance of medication adherence. - Follow-up appointment to be scheduled after review of laboratory results. Patient's vital signs were reasonably stable normal pulse rate. Hemoglobin was 8-1/2 there was an evidence of heavy active ongoing bleeding currently. She had a microcytic anemia likely iron deficiency/blood loss anemia. I recommended that she follow-up with her regular physician and she was agreeable. Lab Data 01/17/25 16:30 01/17/25 16:30 Laboratory Results WBC 6.51 10^3/uL (3.29-11.43) 01/17/25 16:30 RBC 3.96 10^6/uL (3.85-5.65) 01/17/25 16:30 Hgb 8.40 g/dL (11.27-16.99) L 01/17/25 16:30 Hct 30.7 % (36-47) L 01/17/25 16:30 MCV 77.5 fl (85-98) L 01/17/25 16:30 MCH 21.2 pg (27-33) L 01/17/25 16:30 MCHC 27.4 g/dL (30-55) L 01/17/25 16:30 RDW 18.6 % (12.1-15.1) H 01/17/25 16:30 Plt Count 360 10^3/cmm (157-399) 01/17/25 16:30 MPV 10.0 fL (7.4-10.4) 01/17/25 16:30 Neut % (Auto) 70.5 % 01/17/25 16:30 Lymph % (Auto) 20.7 % 01/17/25 16:30 Hand % (Auto) 6.9 % 01/17/25 16:30 Eos % (Auto) 0.8 % 01/17/25 16:30 Baso % (Auto) 0.6 % 01/17/25 16:30 Neut # (Auto) 4.59 10^3/uL (1.8-7.7) 01/17/25 16:30 Lymph # (Auto) 1.4 10^3/uL (0.8-4.8) 01/17/25 16:30 Hand # (Auto) 0.5 10^3/uL (0.2-0.9) 01/17/25 16:30 Eos # (Auto) 0.1 10^3/uL (0.0-0.8) 01/17/25 16:30 Baso # (Auto) 0.0 10^3/uL (0.0-0.1) 01/17/25 16:30 Nucleated RBC % (auto) 0 % 01/17/25 16:30 Nucleated RBCs # 0.0 /100WBC 01/17/25 16:30 Sodium 136 mmol/L (136-145) 01/17/25 16:30 Potassium 4.2 mmol/L (3.5-5.1) 01/17/25 16:30 Chloride 105 mmol/L (98-107) 01/17/25 16:30 Carbon Dioxide 22 mmol/L (22-29) 01/17/25 16:30 Anion Gap 13.2 (5-19) 01/17/25 16:30 BUN 11 mg/dL (6-20) 01/17/25 16:30 Creatinine 0.6 mg/dL (0.5-0.9) 01/17/25 16:30 GFR Calculation 142.0 mL/min (90-130) H 01/17/25 16:30 Glucose 113 mg/dL (65-115) 01/17/25 16:30 Calculated Osmolality 282 mOsm/kg (285-295) L 01/17/25 16:30 Calcium 8.7 mg/dL (8.5-10.5) 01/17/25 16:30 Total Bilirubin 0.2 mg/dL (0.15-1.2) 01/17/25 16:30 AST 10 U/L (0-32) 01/17/25 16:30 ALT 11 U/L (0-33) 01/17/25 16:30 Alkaline Phosphatase 86 U/L (35-105) 01/17/25 16:30 Total Protein 6.5 g/dL (6.6-8.7) L 01/17/25 16:30 Albumin 3.7 g/dL (3.5-5.2) 01/17/25 16:30 Globulin 2.8 g/dL (1.3-4.6) 01/17/25 16:30 HCG, Qual Negative (Negative) 01/17/25 16:44 Urine Color Yellow (Yellow) 01/17/25 16:44 Urine Appearance Cloudy (CLEAR) A 01/17/25 16:44 Urine pH 6.0 (5-7) 01/17/25 16:44 Ur Specific [place] 1.024 (1.005-1.030) 01/17/25 16:44 Urine Protein Negative (Negative) 01/17/25 16:44 Urine Glucose (UA) Negative (Normal) 01/17/25 16:44 Urine Ketones Negative (Negative) 01/17/25 16:44 Urine Blood Negative (Negative) 01/17/25 16:44 Urine Nitrate Negative (Negative) 01/17/25 16:44 Urine Bilirubin Negative (Negative) 01/17/25 16:44 Urine Urobilinogen 1.0 mg/dL (Negative) 01/17/25 16:44 Ur Leukocyte Esterase 2+ (Negative) A 01/17/25 16:44 Urine RBC 0-2 /hpf (0-2) 01/17/25 16:44 Urine WBC 21-50 /hpf (0-5) H 01/17/25 16:44 Ur Squamous Epith Cells 11-20 /hpf (0-5) H 01/17/25 16:44 Amorphous Sediment Not Reportable 01/17/25 16:44 Urine Bacteria 3+ /hpf (NONE) H 01/17/25 16:44 Hyaline Casts 1.21 /lpf 01/17/25 16:44 Urine Opiates Screen Negative ng/mL (Negative) 01/17/25 16:44 Ur Barbiturates Screen Negative ng/mL (Negative) 01/17/25 16:44 Ur Phencyclidine Scrn Negative ng/mL (Negative) 01/17/25 16:44 Ur Amphetamines Screen Negative ng/mL (Negative) 01/17/25 16:44 U Benzodiazepines Scrn Negative ng/mL (Negative) 01/17/25 16:44 Urine Cocaine Screen Negative ng/mL (Negative) 01/17/25 16:44 U Marijuana (THC) Screen Negative ng/mL (Negative) 01/17/25 16:44 No radiology studies performed this visit Discharge Plan Discharge Patient Disposition: Home Clinical Impression: Anemia, Iron deficiency anemia Condition: Stable Prescriptions: No Action omeprazole 40 mg capsule,delayed release(DR/EC) 40 mg PO QPM albuterol sulfate 90 mcg/actuation HFA aerosol inhaler 2 puff INHALATION Q4H PRN (Reason: Shortness Of Breath) ferrous gluconate 324 mg (38 mg iron) tablet 324 mg PO DAILY Discharge Orders: Discharge ED (Routine); Ordered 01/17/25 Ordered By: Alvaro Mitchell Referrals: Hansel Ace MD [Primary Care Provider, Family Practice] Discharge Diet: Advance as tolerated Discharge Activity: Resume usual activity Patient Instructions: Opioid Safety, Pain Management, Patient Portal & Sandra Instructions Activity Restrictions/Additional Instructions: 1. Follow up with PCP - Call for appointment tomorrow. 2. Return for new or worsening symptoms. Print Language: Canadian Coding Level of Care Code ED Pediatric Surgeon for Kamilah Michael
[2025-01-17 16:36] LABS: Hematocrit 30.7 % (36-47); Hemoglobin 8.40 g/dL (11.27-16.99); Mean Corpuscular HGB Conc 27.4 g/dL (30-55); Mean Corpuscular Hemoglobin 21.2 pg (27-33); Mean Corpuscular Volume 77.5 fl (85-98); Nucleated Red Blood Cells % 0 %; Platelet Count 360 10^3/cmm (157-399); Red Blood Count 3.96 10^6/uL (3.85-5.65); White Blood Count 6.51 10^3/uL (3.29-11.43)
[2025-01-17 16:49] LABS: HCG Qualitative Urine. Negative (Negative)
[2025-01-17 16:51] LABS: Glucose Urine UA Negative (Normal); Nitrate Urine Negative (Negative); Specific Gravity, Urine 1.024 (1.005-1.030)
[2025-01-17 16:53] LABS: Add Urine Microscopic? YES
[2025-01-17 16:56] LABS: Alanine Aminotransferase 11 U/L (0-33); Albumin Level 3.7 g/dL (3.5-5.2); Alkaline Phosphatase 86 U/L (35-105); Anion Gap 13.2 (5-19); Aspartate Amino Transferase 10 U/L (0-32); Blood Urea Nitrogen 11 mg/dL (6-20); Calcium 8.7 mg/dL (8.5-10.5); Carbon Dioxide 22 mmol/L (22-29); Chloride 105 mmol/L (98-107); Creatinine Clr Calc Pharmacy 207.3934; Globulin 2.8 g/dL (1.3-4.6); Glucose 113 mg/dL (65-115); Osmolality Calculated 282 mOsm/kg (285-295); Potassium 4.2 mmol/L (3.5-5.1); Sodium 136 mmol/L (136-145); Total Protein 6.5 g/dL (6.6-8.7)
[2025-01-17 16:57] LABS: PCP Screen Urine Negative (Negative)
[2025-01-17 18:07] VITALS: BP 147/71; PULSE 82; O2SAT 100
[2025-01-17 18:12] VITALS: BP 147/71; PULSE 75; O2SAT 100
== END 2025-01-17 18:17 | disposition home or self-care (01) ==
PROVIDERS: Emergency Provider Family Medicine; PCP Family Medicine
DX: D50.9 Iron deficiency anemia, unspecified (principal)
CPT/HCPCS: 80053; 80306; 81001; 81025; 85025; 93005; 99284; J7030

== ENCOUNTER 2025-02-12 10:58 | Outpatient (CLI) | payer BC, MEDICAID, SELFPAY ==
--- NOTE | 2025-02-12 11:30 | US_ITS ---
WS: [id number] US pelv w/transvag [id number] HISTORY: N92.0 - Excessive and frequent menstruation with regular ... COMPARISON: 08/30/2015 Uterus: 9.1 cm x 5.6 cm x 4.9 cm. Normal size anteverted uterus. No fibroid or mass. Endometrium: 1.1 cm. Normal. No mass or increased vascularity. Right ovary: 3.8 cm x 2.4 cm x 3.0 cm. Normal size and vascularity, no cystic or solid masses. Left ovary: 2.1 cm x 2.0 cm x 2.0 cm. Normal size and vascularity, no cystic or solid masses. No free fluid in the cul-de-sac. US/US pelv w/transvag [id number] IMPRESSION: 1. Normal pelvic ultrasound. 2. Normal endometrium.
== END 2025-02-12 10:59 | disposition home or self-care (01) ==
LOC: RAD 11:00
PROVIDERS: PCP Family Medicine; Visit Provider Obstetrics & Gynecology
DX: N92.0 Excessive and frequent menstruation with regular cycle (principal)
CPT/HCPCS: 76830; 76856

== ENCOUNTER 2025-02-18 10:01 | Outpatient (CLI) | payer BC, MEDICAID, SELFPAY ==
--- NOTE | 2025-02-18 10:00 | MM_ITS ---
WS: [id number] BILATERAL 3D TOMOSYNTHESIS DIGITAL SCREENING MAMMOGRAPHY WITH CAD CLINICAL INFORMATION: N63.10 - Unspecified lump in the right breast, unspecifie... HISTORY: Screening mammogram. No current complaints. COMPARISON: Ultrasound 2019 TECHNIQUE: Bilateral CC and MLO views. FINDINGS: Scattered fibroglandular densities bilaterally. Palpable marker upper outer RIGHT breast. Near the 12 o'clock position is a calcified nodule measuring 1.6 x 1.5 cm. Ultrasound described below. No other suspicious abnormalities in either breast. ULTRASOUND BREAST RIGHT TECHNIQUE: Ultrasound right breast focused area of concern. CLINICAL INFORMATION: N63.10 - Unspecified lump in the right breast, unspecifie... COMPARISON: 2019 FINDINGS: Previously described lesion at the 11 o'clock position has a different appearance today with internal cystic change and echogenic components which may represent fatty or lipid contents under the assumption this could represent a galactocele. Today this measures approximately 1.5 x 1.8 x 1.7 cm and is d ecreased in size compared to previous. In conjunction with the mammographic findings this most likely presents involuting galactocele or fat necrosis/oil cyst. Biopsy not recommended due to risk of internal content rupture which can result in abscess due to suspected lipid contents. Regardless this has a benign appearance MM/MM diag BI tomosynthesis [id number] IMPRESSION: DENSITY: There are scattered areas of fibroglandular density. BI-RADS: 2 - Benign. FOLLOW UP: Age 39 Recommend annual screening mammography age 39
--- NOTE | 2025-02-18 10:30 | US_ITS ---
WS: [id number] BILATERAL 3D TOMOSYNTHESIS DIGITAL SCREENING MAMMOGRAPHY WITH CAD CLINICAL INFORMATION: N63.10 - Unspecified lump in the right breast, unspecifie... HISTORY: Screening mammogram. No current complaints. COMPARISON: Ultrasound 2019 TECHNIQUE: Bilateral CC and MLO views. FINDINGS: Scattered fibroglandular densities bilaterally. Palpable marker upper outer RIGHT breast. Near the 12 o'clock position is a calcified nodule measuring 1.6 x 1.5 cm. Ultrasound described below. No other suspicious abnormalities in either breast. ULTRASOUND BREAST RIGHT TECHNIQUE: Ultrasound right breast focused area of concern. CLINICAL INFORMATION: N63.10 - Unspecified lump in the right breast, unspecifie... COMPARISON: 2019 FINDINGS: Previously described lesion at the 11 o'clock position has a different appearance today with internal cystic change and echogenic components which may represent fatty or lipid contents under the assumption this could represent a galactocele. Today this measures approximately 1.5 x 1.8 x 1.7 cm and is d ecreased in size compared to previous. In conjunction with the mammographic findings this most likely presents involuting galactocele or fat necrosis/oil cyst. Biopsy not recommended due to risk of internal content rupture which can result in abscess due to suspected lipid contents. Regardless this has a benign appearance US/US breast RT limited* [id number] IMPRESSION: DENSITY: There are scattered areas of fibroglandular density. BI-RADS: 2 - Benign. FOLLOW UP: Age 39 Recommend annual screening mammography age 39
== END 2025-02-18 10:02 | disposition home or self-care (01) ==
LOC: RAD 10:04
PROVIDERS: PCP Family Medicine; Visit Provider Obstetrics & Gynecology
DX: N63.10 Unspecified lump in the right breast, unspecified quadrant (principal)
CPT/HCPCS: 76642; 77062; G0279